=== PATIENT | female | born 1960 | race African-American/Black ===

== ENCOUNTER 2023-08-24 00:45 | Inpatient (IN) | payer OTHER ==
[2023-08-24] VITALS (16 sets, daily range): BP systolic 113–169; BP diastolic 68–98; PULSE 70–96; RESP 16–22; O2SAT 95–97
[~2023-08-24] VITALS: Ht 157.5 cm; Wt 56.8 kg
[2023-08-24] MEDS ORDERED: 0.9%NACL 1000ML 2,500 ML IV ONE (01:30)
[2023-08-24 01:38] LABS: BASOPHILS # (AUTO) 0.03 K/uL (0.00-0.20); BASOPHILS % (AUTO) 0.3 % (0.0-5.0); EOSINOPHILS # (AUTO) 0.12 K/uL (0.00-0.70); EOSINOPHILS % (AUTO) 1.1 % (0.0-8.0); HEMATOCRIT 43.3 % (36-48); IMMATURE GRANULOCYTE ABSOLUTE 0.05 K/uL (0-1); LYMPHOCYTES # (AUTO) 0.8 K/uL (1.0-4.8); LYMPHOCYTES % (AUTO) 6.7 % (21.0-51.0); MEAN CORPUSCULAR HEMOGLOBIN 30.4 pg (27.0-33.0); MEAN CORPUSCULAR HGB CONC 33.3 g/dL (32.0-36.0); MEAN CORPUSCULAR VOLUME 91.4 fL (79-99); MONOCYTES # (AUTO) 1.1 K/uL (0.1-1.0); MONOCYTES % (AUTO) 10.1 % (3.0-13.0); NEUTROPHILS # (AUTO) 9.1 K/uL (1.8-7.7); NEUTROPHILS % (AUTO) 81.4 % (40.0-77.0); PLATELET COUNT (AUTO) 169 K/uL (130-400); RED BLOOD CELL COUNT(AUTO) 4.74 MIL/uL (4.00-5.50); RED CELL DISTRIBUTION WIDTH 14.5 % (11.0-15.5); WHITE BLOOD COUNT (AUTO) 11.2 K/uL (4.8-10.8)
[2023-08-24 01:38] LABS: ABG BASE EXCESS 0.1 mmol/L (-2.0-3.0); ABG HCO3 23.8 mmol/L (21.0-28.0); ABG OXYGEN SATURATION 89.3 % (95.0-99.0); ABG PCO2 36 mmHg (32-45); ABG PH 7.437 (7.35-7.450); PO2, ARTERIAL BG 53.9 mmHg (83.0-108.0); VENT MODE, BG ROOMAIR (ROOM AIR)
[2023-08-24 01:50] LABS: CREATININE 0.8 mg/dL (0.5-1.5); POTASSIUM 4.2 mmol/L (3.5-5.1)
[2023-08-24 01:52] LABS: INR 1.02 (0.85-1.15); PROTHROMBIN TIME 11.8 SEC (9.6-11.6)
[2023-08-24 01:53] LABS: PARTIAL THROMBOPLASTIN TIME 39.8 SEC (26.3-35.5)
[2023-08-24 01:57] LABS: ALBUMIN 3.8 g/dL (3.5-5.0); BILIRUBIN,TOTAL 0.6 mg/dL (0.2-1.0); TOTAL PROTEIN, SERUM 7.8 g/dL (6.0-8.3)
[2023-08-24] MEDS ORDERED: CEFTRIAXONE 1G VIAL IVPB ONE (02:00)
[2023-08-24] MEDS ORDERED: SOLU-MEDROL 125MG VIAL IVP ONE (02:00)
[2023-08-24] MEDS ORDERED: AZITHROMYCIN 250 MG TABLET PO ONE (02:00)
[2023-08-24 02:04] LABS: B-TYPE NATRIURETIC PEPTIDE 650 pg/mL (0-100)
[2023-08-24 02:23] LABS: RAPID GROUP A STREP negative (NEGATIVE); SARS-CoV-2, RNA, NAAT NEGATIVE SARS CoV-2 (NEGATIVE)
[2023-08-24] MEDS ORDERED: ASPIRIN 81MG CHEW TAB PO ONE (02:30)
[2023-08-24 02:31] LABS: INFLUENZA TYPE B NEGATIVE FOR TYPE B (NEGATIVE)
[2023-08-24 02:32] LABS: INFLUENZA TYPE A POSITIVE FOR TYPE A (NEGATIVE)
[2023-08-24 02:34] LABS: WBC MORPHOLOGY CONSISTENT W/DIFF
[2023-08-24] MEDS ORDERED: IOHEXOL-350 75 ML VIAL IV ONE (02:42)
[2023-08-24 02:54] LABS: APPEARANCE,URINE CLOUDY (CLEAR); BILIRUBIN,URINE NEGATIVE (NEGATIVE); COLOR,URINE YELLOW (YELLOW); GLUCOSE, URINE (UA) 30 mg/dL (NEGATIVE); KETONES,URINE 5 mg/dL (NEGATIVE); LEUKOCYTE ESTERASE ,URINE 500 Leu/uL (NEGATIVE); NITRATE,URINE NEGATIVE (NEGATIVE); OCCULT BLOOD,URINE LARGE (NEGATIVE); PH,URINE 5.5 (5.0-8.0); PROTEIN,URINE 100 mg/dL (NEGATIVE); UROBILINOGEN,URINE 0.2 mg/dL (0.2-1.0)
[2023-08-24 02:57] LABS: ADD UA MICROSCOPIC YES
[2023-08-24 02:58] LABS: BACTERIA,URINE MANY /HPF (None Seen); MUCUS,URINE FEW LPF (None Seen); SQUAMOUS EPITHELIAL CELL,UR MOD /HPF (0-2); WBC,URINE 26-50 /HPF (0-1)
[2023-08-24] MEDS ORDERED: MORPHINE 2 MG SYG IV PRN (03:00)
[2023-08-24] MEDS ORDERED: HEPARIN 5,000 UNIT VIAL SQ PRN (03:00)
[2023-08-24] MEDS ORDERED: GUAIFENESIN-DM 200/20 MG 10 ML PO PRN (03:00)
[2023-08-24] MEDS ORDERED: MORPHINE 4 MG SYG IV PRN (03:00)
[2023-08-24] MEDS ORDERED: ACETAMINOPHEN 325 MG TAB PO PRN ×2 (03:00)
[2023-08-24] MEDS ORDERED: HEPARIN 25,000 UNITS/250ML D5W 250 ML IV SCH (03:00)
[2023-08-24] MEDS ORDERED: NITROGLYCERIN 0.4 MG SL TAB SL PRN (03:00)
[2023-08-24] MEDS ORDERED: NICOTINE 21 MG/ 24 HR PATCH TD SCH (03:00)
[2023-08-24] MEDS ORDERED: ONDANSETRON 4MG INJ IV PRN (03:00)
[2023-08-24] MEDS ORDERED: SODIUM CHLORIDE 3% FOR INHALATION 4 ML/AMP VIAL.NEB IH ONE ×2 (06:13→18:29)
[2023-08-24] MEDS: IPRATROPIUM/ALBUTEROL SULFATE 3 ML SOLUTION IH SCH ×4 (06:27→23:39)
[2023-08-24] MEDS: ASPIRIN 81MG CHEW TAB PO SCH (08:17)
[2023-08-24] MEDS: FAMOTIDINE 20MG TAB PO SCH (08:17)
[2023-08-24] MEDS: OSELTAMIVIR PHOSPHATE 75 MG CAP PO SCH ×2 (08:24→21:10)
[2023-08-24] MEDS: HEPARIN 5,000 UNIT VIAL SQ SCH ×3 (08:25→21:11)
[2023-08-24] MEDS: SOLU-MEDROL 40MG VIAL IVP SCH ×2 (10:08→18:29)
[2023-08-24] MEDS: NICOTINE 21 MG/ 24 HR PATCH TD SCH (10:08)
[2023-08-25] VITALS (15 sets, daily range): BP systolic 120–147; BP diastolic 78–90; PULSE 77–101; RESP 18–20; O2SAT 97–99
[2023-08-25] MEDS: SOLU-MEDROL 40MG VIAL IVP SCH ×3 (01:21→19:01)
[2023-08-25 04:24] LABS: BASOPHILS # (AUTO) 0.02 K/uL (0.00-0.20); BASOPHILS % (AUTO) 0.1 % (0.0-5.0); EOSINOPHILS # (AUTO) 0.01 K/uL (0.00-0.70); EOSINOPHILS % (AUTO) 0.1 % (0.0-8.0); HEMATOCRIT 42.6 % (36-48); IMMATURE GRANULOCYTE ABSOLUTE 0.07 K/uL (0-1); LYMPHOCYTES # (AUTO) 0.7 K/uL (1.0-4.8); MEAN CORPUSCULAR HEMOGLOBIN 30.4 pg (27.0-33.0); MEAN CORPUSCULAR HGB CONC 33.3 g/dL (32.0-36.0); MEAN CORPUSCULAR VOLUME 91.2 fL (79-99); MONOCYTES # (AUTO) 0.8 K/uL (0.1-1.0); NEUTROPHILS # (AUTO) 14.6 K/uL (1.8-7.7); NEUTROPHILS % (AUTO) 90.4 % (40.0-77.0); PLATELET COUNT (AUTO) 181 K/uL (130-400); RED BLOOD CELL COUNT(AUTO) 4.67 MIL/uL (4.00-5.50); RED CELL DISTRIBUTION WIDTH 14.5 % (11.0-15.5); WHITE BLOOD COUNT (AUTO) 16.1 K/uL (4.8-10.8)
[2023-08-25 04:42] LABS: CREATININE 0.9 mg/dL (0.5-1.5); MAGNESIUM 2.3 mg/dL (1.80-2.40); POTASSIUM 4.1 mmol/L (3.5-5.1)
[2023-08-25] MEDS: IPRATROPIUM/ALBUTEROL SULFATE 3 ML SOLUTION IH SCH ×4 (06:59→23:15)
[2023-08-25] MEDS ORDERED: LEVOFLOXACIN 500 MG/D5W 100 ML 100 ML IV ONE (08:09)
[2023-08-25] MEDS ORDERED: NICOTINE 21 MG/ 24 HR PATCH TD SCH (09:00)
[2023-08-25] MEDS: FAMOTIDINE 20MG TAB PO SCH (10:45)
[2023-08-25] MEDS: ASPIRIN 81MG CHEW TAB PO SCH (10:45)
[2023-08-25] MEDS: HEPARIN 5,000 UNIT VIAL SQ SCH ×2 (10:47→20:34)
[2023-08-25] MEDS: NICOTINE 21 MG/ 24 HR PATCH TD SCH (10:48)
[2023-08-25] MEDS: OSELTAMIVIR PHOSPHATE 75 MG CAP PO SCH ×2 (10:49→20:29)
[2023-08-25] MEDS: PANTOPRAZOLE 40 MG TAB DR PO SCH (10:52)
[2023-08-25] MEDS: BUDESONIDE 0.5 MG/2 ML INH IH SCH (18:39)
[2023-08-25] MEDS: MONTELUKAST SODIUM 10 MG TAB PO SCH (20:28)
[2023-08-25] MEDS ORDERED: HYDRALAZINE 20MG/ML VIAL IV ONE (22:00)
[2023-08-26] VITALS (13 sets, daily range): BP systolic 116–148; BP diastolic 52–93; PULSE 76–100; RESP 16–18; O2SAT 96–99
[2023-08-26 05:52] LABS: BASOPHILS # (AUTO) 0.02 K/uL (0.00-0.20); BASOPHILS % (AUTO) 0.1 % (0.0-5.0); EOSINOPHILS # (AUTO) 0.02 K/uL (0.00-0.70); EOSINOPHILS % (AUTO) 0.1 % (0.0-8.0); HEMATOCRIT 40.8 % (36-48); IMMATURE GRANULOCYTE ABSOLUTE 0.11 K/uL (0-1); LYMPHOCYTES % (AUTO) 6.1 % (21.0-51.0); MEAN CORPUSCULAR HGB CONC 34.1 g/dL (32.0-36.0); MEAN CORPUSCULAR VOLUME 91.1 fL (79-99); MONOCYTES # (AUTO) 0.9 K/uL (0.1-1.0); MONOCYTES % (AUTO) 5.6 % (3.0-13.0); NEUTROPHILS % (AUTO) 87.4 % (40.0-77.0); PLATELET COUNT (AUTO) 204 K/uL (130-400); RED BLOOD CELL COUNT(AUTO) 4.48 MIL/uL (4.00-5.50); RED CELL DISTRIBUTION WIDTH 14.6 % (11.0-15.5)
[2023-08-26] MEDS: BUDESONIDE 0.5 MG/2 ML INH IH SCH ×2 (06:22→18:57)
[2023-08-26] MEDS: IPRATROPIUM/ALBUTEROL SULFATE 3 ML SOLUTION IH SCH ×4 (06:22→23:27)
[2023-08-26 06:26] LABS: CREATININE 0.9 mg/dL (0.5-1.5); MAGNESIUM 2.4 mg/dL (1.80-2.40); PHOSPHORUS 3.7 mg/dL (2.5-4.9); POTASSIUM 3.8 mmol/L (3.5-5.1); THYROID STIMULATING HORMONE 0.34 uIU/mL (0.36-3.74)
[2023-08-26] MEDS ORDERED: KCL 20 MEQ ERTAB PO ONE (09:16)
[2023-08-26] MEDS: LEVOFLOXACIN 250 MG/D5W 50ML 50 ML IVPB SCH (09:19)
[2023-08-26] MEDS: OSELTAMIVIR PHOSPHATE 75 MG CAP PO SCH ×2 (09:20→20:00)
[2023-08-26] MEDS: ASPIRIN 81MG CHEW TAB PO SCH (09:20)
[2023-08-26] MEDS: FAMOTIDINE 20MG TAB PO SCH (09:20)
[2023-08-26] MEDS: PREDNISONE 20 MG TABLET PO SCH (09:20)
[2023-08-26] MEDS: PANTOPRAZOLE 40 MG TAB DR PO SCH (09:21)
[2023-08-26] MEDS: AMLODIPINE 5 MG TAB PO SCH (09:21)
[2023-08-26] MEDS: HEPARIN 5,000 UNIT VIAL SQ SCH ×2 (09:22→20:02)
[2023-08-26] MEDS: NICOTINE 21 MG/ 24 HR PATCH TD SCH (09:22)
[2023-08-26] MEDS: MONTELUKAST SODIUM 10 MG TAB PO SCH (20:01)
[2023-08-27] VITALS (15 sets, daily range): BP systolic 139–158; BP diastolic 83–96; PULSE 70–92; RESP 18–20; O2SAT 94–99
[2023-08-27 03:59] LABS: BASOPHILS # (AUTO) 0.03 K/uL (0.00-0.20); BASOPHILS % (AUTO) 0.2 % (0.0-5.0); HEMATOCRIT 41.6 % (36-48); IMMATURE GRANULOCYTE ABSOLUTE 0.13 K/uL (0-1); LYMPHOCYTES % (AUTO) 15.1 % (21.0-51.0); MEAN CORPUSCULAR HEMOGLOBIN 30.5 pg (27.0-33.0); MEAN CORPUSCULAR HGB CONC 32.9 g/dL (32.0-36.0); MEAN CORPUSCULAR VOLUME 92.7 fL (79-99); MONOCYTES # (AUTO) 1.3 K/uL (0.1-1.0); MONOCYTES % (AUTO) 9.6 % (3.0-13.0); NEUTROPHILS % (AUTO) 74.1 % (40.0-77.0); PLATELET COUNT (AUTO) 202 K/uL (130-400); RED BLOOD CELL COUNT(AUTO) 4.49 MIL/uL (4.00-5.50); RED CELL DISTRIBUTION WIDTH 14.6 % (11.0-15.5); WHITE BLOOD COUNT (AUTO) 13.4 K/uL (4.8-10.8)
[2023-08-27 04:07] LABS: CREATININE 0.8 mg/dL (0.5-1.5); POTASSIUM 3.9 mmol/L (3.5-5.1)
[2023-08-27] MEDS: IPRATROPIUM/ALBUTEROL SULFATE 3 ML SOLUTION IH SCH ×4 (07:51→23:17)
[2023-08-27] MEDS: BUDESONIDE 0.5 MG/2 ML INH IH SCH ×2 (07:51→18:53)
[2023-08-27] MEDS: FAMOTIDINE 20MG TAB PO SCH (09:00)
[2023-08-27] MEDS: ASPIRIN 81MG CHEW TAB PO SCH (09:01)
[2023-08-27] MEDS: LEVOFLOXACIN 250 MG/D5W 50ML 50 ML IVPB SCH (09:02)
[2023-08-27] MEDS: PANTOPRAZOLE 40 MG TAB DR PO SCH (09:02)
[2023-08-27] MEDS: OSELTAMIVIR PHOSPHATE 75 MG CAP PO SCH ×2 (09:02→20:44)
[2023-08-27] MEDS: PREDNISONE 20 MG TABLET PO SCH (09:02)
[2023-08-27] MEDS: AMLODIPINE 5 MG TAB PO SCH (09:02)
[2023-08-27] MEDS: NICOTINE 21 MG/ 24 HR PATCH TD SCH (09:04)
[2023-08-27] MEDS: HEPARIN 5,000 UNIT VIAL SQ SCH ×2 (09:11→20:48)
[2023-08-27] MEDS ORDERED: MONT-46 PO (17:57)
[2023-08-27] MEDS ORDERED: BUDE10.7 IH (17:57)
[2023-08-27] MEDS ORDERED: AUD IH (17:57)
[2023-08-27] MEDS: MONTELUKAST SODIUM 10 MG TAB PO SCH (20:44)
[2023-08-28] VITALS (8 sets, daily range): BP systolic 135–150; BP diastolic 83–87; PULSE 67–100; RESP 18–20; O2SAT 95–99
[2023-08-28 04:11] LABS: BASOPHILS # (AUTO) 0.02 K/uL (0.00-0.20); BASOPHILS % (AUTO) 0.2 % (0.0-5.0); HEMATOCRIT 39.3 % (36-48); IMMATURE GRANULOCYTE ABSOLUTE 0.08 K/uL (0-1); LYMPHOCYTES # (AUTO) 2.3 K/uL (1.0-4.8); LYMPHOCYTES % (AUTO) 25.7 % (21.0-51.0); MEAN CORPUSCULAR HEMOGLOBIN 29.9 pg (27.0-33.0); MEAN CORPUSCULAR HGB CONC 33.1 g/dL (32.0-36.0); MEAN CORPUSCULAR VOLUME 90.3 fL (79-99); MONOCYTES % (AUTO) 11.1 % (3.0-13.0); NEUTROPHILS # (AUTO) 5.5 K/uL (1.8-7.7); NEUTROPHILS % (AUTO) 62.1 % (40.0-77.0); PLATELET COUNT (AUTO) 199 K/uL (130-400); RED BLOOD CELL COUNT(AUTO) 4.35 MIL/uL (4.00-5.50); RED CELL DISTRIBUTION WIDTH 14.2 % (11.0-15.5); WHITE BLOOD COUNT (AUTO) 8.8 K/uL (4.8-10.8)
[2023-08-28 04:34] LABS: CREATININE 0.8 mg/dL (0.5-1.5); POTASSIUM 3.9 mmol/L (3.5-5.1)
[2023-08-28] MEDS: IPRATROPIUM/ALBUTEROL SULFATE 3 ML SOLUTION IH SCH (06:38)
[2023-08-28] MEDS: BUDESONIDE 0.5 MG/2 ML INH IH SCH (06:42)
[2023-08-28] MEDS ORDERED: AMLO5TAB4 PO (08:28)
[2023-08-28] MEDS ORDERED: LEVO750T39 PO (08:28)
[2023-08-28] MEDS ORDERED: PRED20B PO (08:28)
[2023-08-28] MEDS ORDERED: ASPI-1005 PO (08:28)
[2023-08-28] MEDS: LEVOFLOXACIN 250 MG/D5W 50ML 50 ML IVPB SCH (08:36)
[2023-08-28] MEDS: FAMOTIDINE 20MG TAB PO SCH (08:37)
[2023-08-28] MEDS: NICOTINE 21 MG/ 24 HR PATCH TD SCH (08:37)
[2023-08-28] MEDS: OSELTAMIVIR PHOSPHATE 75 MG CAP PO SCH (08:37)
[2023-08-28] MEDS: ASPIRIN 81MG CHEW TAB PO SCH (08:38)
[2023-08-28] MEDS: PREDNISONE 20 MG TABLET PO SCH (08:38)
[2023-08-28] MEDS: AMLODIPINE 5 MG TAB PO SCH (08:38)
[2023-08-28] MEDS: HEPARIN 5,000 UNIT VIAL SQ SCH (08:44)
== END 2023-08-28 12:02 | disposition home or self-care (01) | DRG 193 ==
LOC: EDH 00:45 → EDHIP 00:46 → WSH 12:53 → EDHIP 13:10 → 2AH 18:17
PROVIDERS: ADMIT Internal Medicine; ATTEND Internal Medicine
DX: J10.1 Influenza due to other identified influenza virus with other respiratory manifestations (principal); I21.A1 Myocardial infarction type 2; J96.01 Acute respiratory failure with hypoxia; I50.31 Acute diastolic (congestive) heart failure; J44.1 Chronic obstructive pulmonary disease with (acute) exacerbation; N30.00 Acute cystitis without hematuria; J44.0 Chronic obstructive pulmonary disease with (acute) lower respiratory infection; J45.901 Unspecified asthma with (acute) exacerbation; Z20.822 Contact with and (suspected) exposure to COVID-19; R73.9 Hyperglycemia, unspecified; F17.210 Nicotine dependence, cigarettes, uncomplicated; Z60.2 Problems related to living alone; I11.0 Hypertensive heart disease with heart failure; I35.0 Nonrheumatic aortic (valve) stenosis; Z79.82 Long term (current) use of aspirin; Z90.710 Acquired absence of both cervix and uterus
CPT/HCPCS: 36415; 36600; 70450; 71045; 71270; 80048; 80053; 81001; 82550; 82803; 82948; 83605; 83735; 83880; 84100; 84443; 84484; 85025; 85610; 85730; 87040; 87071; 87088; 87205; 87635; 87804; 87880; 93005; 93306; 94640; 94664; 94760; 99291; 99292; C9803; G0378; J0360; J0696; J1644; J1956; J2920; J2930; Q9967

== ENCOUNTER → 2025-02-24 | Outpatient (CLI) | payer OTHER ==
[~2025-02-24] MED LIST: AMLO5TAB4 PO; ASPI-1005 PO; AUD IH; BUDE10.7 IH; LEVO750T90 PO; MONT-46 PO; PRED20B PO
--- NOTE | 2025-02-24 21:23 | HMCSR ---
APPROVED REPORT EXAM: Two-dimensional and M-mode echocardiogram with Doppler and color Doppler. INDICATION ICD: I38 2D Dimensions RVDd3.1 cmLVEF(%)48.1 (>50%)LVED Vol(simp.)87.0 mL IVSd1.2 (0.7-1.1cm)FS(%)24 %LVES Vol(simp.)42.0 mL LVDd3.7 (3.8-5.6cm)LA (2D)2.8 (1.6-4.0cm)LVEF(%, simp.)52 % PWd1.3 (0.7-1.1cm)Ao Root(2D)2.7 (2.0-3.7cm)LA ESV INDEX (BP)42.71 mL/m2 LVDs2.8 (2.5-4.0cm)LVOT diam1.8 (1.8-2.4cm) IVC diam2.2 cm M-Mode Dimensions EPSS0.8 cm LA (MM)2.3 (1.6-4.0cm) Ao Root(MM)1.8 (2.0-3.7cm) Aortic Valve AoV Vmax5.1 m/Diana Peak GR104.8 mmHgLVOT Vmax0.8 m/s AoV VTI1.3 mAo Mean GR69.4 mmHgLVOT VTI0.21 m SABINO (VMAX)0.41 cm2AVA (VTI) 0.4 cm2 Mitral Valve MV E Vmax77.8 cm/sDECEL Bkkk839 ms MV A Emjg916.5 cm/sP 1/2 T118 ms E/A ratio0.7MVA (PHT)1.9 cm2 MR Max PG25 mmHg TDI E/E' Vrsskn62.9E/E' Xrlhutx02.6 Medial E' Peak V4.11 cm/sLateral E' Peak V3.78 cm/s Pulmonary Valve PV Vmax0.8 m/sPV VTI0.17 mPV Mean GR1.8 mmHg PV Peak GR2.8 mmHg Tricuspid Valve TR Vmax1.9 m/sRVSP12.8 mmHg TR Peak GR14.0 mmHg Left Ventricle Left ventricular cavity size is normal. There is normal LV segmental wall motion. Mild concentric lef t ventricular hypertrophy. LVEF is 50-55%. Stage I diastolic dysfunction. Right Ventricle The right ventricle is normal size. The right ventricular systolic function is normal. Atria The left atrium is moderately dilated. The right atrium size is normal. Aortic Valve The aortic valve is severely calcified and displays decreased opening. No aortic regurgitation is pre sent. There is severe valvular aortic stenosis. Highest mean aortic valve gradient is 69 mmHg. Peak a ortic valve gradient is 108 mmHg. Calculated SABINO is 0.4cm2. Mitral Valve The mitral valve is mildly thickened but opens well. Mitral regurgitation is trace. There is no elisabeth l valve stenosis. Tricuspid Valve The tricuspid valve is normal in structure. There is mild tricuspid valve regurgitation noted. Pulmonic Valve Pulmonic valve is not well visualized. There is no pulmonic valvular regurgitation. Great Vessels The aortic root is normal in size. IVC is dilated and collapses <50% with inspiration. Pericardium No pericardial effusion. Conclusion LVEF is 50-55%. Mild concentric left ventricular hypertrophy. Stage I diastolic dysfunction. The left atrium is moderately dilated. There is severe valvular aortic stenosis. Highest mean aortic valve gradient is 69 mmHg. Peak aortic valve gradient is 108 mmHg. Calculated SABINO is 0.4cm2.
== END | disposition home or self-care (01) ==
LOC: RAH 14:56
PROVIDERS: ATTEND Internal Medicine
DX: I08.2 Rheumatic disorders of both aortic and tricuspid valves (principal); I11.9 Hypertensive heart disease without heart failure
CPT/HCPCS: 93306